=== PATIENT | female | born 1960 | race Caucasian/White ===

== ENCOUNTER 2017-04-15 11:51 | Emergency (ER) | payer BC ==
[2017-04-15 12:15] LABS: #Basophils 0.1 thou/uL (0.0-0.2); #Eosinphils 0.1 thou/uL (0.0-0.7); #Lymphocytes 2.1 thou/uL (1.20-3.40); #Monocytes 0.6 thou/uL (0.11-0.59); %Basophils 1.3 % (0.0-1.0); %Eosinophils 0.7 % (0.0-10.0); %Lymphocytes 31.1 % (21.0-51.0); %Monocytes 8.5 % (0.0-10.0); Hematocrit 40.4 % (36.0-47.0); Mean Platelet Volume 6.5 fL (7.4-10.4); Red Blood Cell (RBC) Count 4.04 mill/uL (4.20-5.40); White Blood Cell (WBC) Count 6.9 thou/uL (4.8-10.8)
[2017-04-15 12:35] LABS: ALT (SGPT) 14 U/L (8-55); AST (SGOT) 19 U/L (5-34); Alkaline Phosphatase 54 U/L (40-150); Anion Gap 23 mmol/L (10-20); BUN (Urea Nitrogen) 13 mg/dL (9.8-20.1); Bilirubin, Total 0.4 mg/dL (0.2-1.2); Calc. Creatinine Clearance 0 mL/min (70-130); Calcium 10.2 mg/dL (7.8-10.44); Carbon Dioxide 19 mmol/L (22-29); Chloride 99 mmol/L (98-107); Estimated GFR-MDRD 71; Globulin 3.1 g/dL (2.4-3.5); Protein, Total 7.8 g/dL (6.0-8.3)
[2017-04-15] MEDS ORDERED: Labetalol HCl 100 MG/20 ML VIAL ONE (12:39)
[2017-04-15 12:40] LABS: Troponin I Less than 0.010 ng/mL (< 0.028)
[2017-04-15 13:03] LABS: Magnesium 1.9 mg/dL (1.6-2.6)
--- NOTE | 2017-04-15 13:49 | RAD ---
SINGLE VIEW OF THE CHEST 04/15/17 COMPARISON: 02/27/07. HISTORY: Chest pain. FINDINGS: Single view of the chest shows a normal sized cardiomediastinal silhouette. There is no evidence of consolidation, mass, or pleural effusion. The bones are unremarkable. The patient has calcified bila teral breast implants. IMPRESSION: No evidence of acute cardiopulmonary disease. POS: [facility]
== END 2017-04-15 14:27 | disposition home or self-care (01) ==
LOC: ERS 11:51
DX: I10 Essential (primary) hypertension (principal); F17.210 Nicotine dependence, cigarettes, uncomplicated
CPT/HCPCS: 71010; 80053; 82553; 83690; 83735; 84443; 84484; 85025; 93005; 96374